=== PATIENT | female | born 1990 | race Caucasian/White ===

== ENCOUNTER 2019-01-18 19:51 | Emergency (ER) | payer MEDICAID, OTHER ==
[~2019-01-18] VITALS: Ht 157.5 cm; Wt 88.5 kg
[~2019-01-18 19:51] MED LIST: AMOX500C2 PO; CEPH-443 PO; CEPH500C PO; CODE118S PO; IBUP-1542 PO; IBUP-1561 PO; IBUP800T48 PO; LOPE-123 PO; NO MEDS; OSEL75CA23 PO; POLY17PO6 PO; PRED20TA PO; SULF1TAB31 PO
[2019-01-18 20:24] VITALS: Ht 157.5 cm; Wt 88.5 kg
[2019-01-18] MEDS ORDERED: POLYETHYLENE GLYCOL 17 GM PACKET PO ONE (22:30)
[2019-01-19 00:34] VITALS: BP 169/100; PULSE 78; RESP 16
== END 2019-01-19 00:35 | disposition home or self-care (01) ==
LOC: FTE 19:51
DX: K59.00 Constipation, unspecified (principal)
CPT/HCPCS: 74019; 81025; Z7502; Z7610